=== PATIENT | male | born 1935 | race Caucasian/White ===

== ENCOUNTER 2021-11-12 12:57 | Inpatient (IN) | payer MEDICARE, OTHER ==
[~2021-11-12] VITALS: Ht 172.7 cm; Wt 95.0 kg
[2021-11-12] MEDS ORDERED: DILTIAZEM HCL 5 MG/ML 5 ML VIAL IVP ONE (13:45)
[2021-11-12] MEDS ORDERED: DIGOXIN 250 MCG/ML 2 ML AMP IVP ONE (13:45)
[2021-11-12] MEDS ORDERED: CALCIUM GLUCONATE 100 MG/ML 10 ML IVP ONE (13:45)
[2021-11-12 13:46] LABS: BASOPHILS % (AUTO) 0.1 % (0.0-2.0); EOSINOPHILS % (AUTO) 0 % (1.0-6.0); HEMATOCRIT 36.8 % (41-53); HEMOGLOBIN 12.3 g/dL (13.5-17.5); LYMPHOCYTES # (AUTO) 0.5 K/uL (1.0-4.8); LYMPHOCYTES % (AUTO) 4.4 % (22.0-44.0); MEAN CORPUSCULAR HEMOGLOBIN 32.1 pg (26.0-34.0); MEAN CORPUSCULAR HGB CONC 33.4 G/dL (31.0-37.0); MEAN CORPUSCULAR VOLUME 96 fL (80-100); MONOCYTES # (AUTO) 0.9 K/uL (0.1-1.0); MONOCYTES % (AUTO) 7.6 % (2.0-9.0); NEUTROPHILS # (AUTO) 10.5 K/uL (1.8-7.7); PLATELET COUNT (AUTO) 161 K/uL (150-450); RED BLOOD CELL COUNT(AUTO) 3.82 MIL/uL (4.50-5.90)
[2021-11-12 13:47] LABS: NEUTROPHILS % (AUTO) 87.9 % (40.0-70.0)
[2021-11-12 13:51] LABS: CALCIUM, TOTAL 8.7 mg/dL (8.8-10.5); CREATININE 3.95 mg/dL (0.60-1.30); POTASSIUM 3.3 mmol/L (3.5-5.1)
[2021-11-12 13:57] LABS: ALBUMIN 2.2 g/dL (3.4-5.0); BILIRUBIN,TOTAL 1.7 mg/dL (0.1-1.0)
[2021-11-12 14:07] LABS: INR 1.1 (0.9-1.1); PROTHROMBIN TIME 11.6 SEC (9.4-11.6)
[2021-11-12 14:22] LABS: COVID AG,FIA SOURCE NASOPHARYNGEAL
[2021-11-12] MEDS ORDERED: 0.9% SODIUM CHLORIDE 10 ML SYRINGE IVP PRN (14:30)
[2021-11-12] MEDS ORDERED: ONDANSETRON HCL 4 MG/2 ML VIAL IVP PRN ×2 (14:30)
[2021-11-12] MEDS ORDERED: ACETAMINOPHEN 325 MG TABLET PO PRN (14:30)
[2021-11-12] MEDS ORDERED: DEXTROSE 50%-WATER 25 GM/50 ML SYRINGE IVP PRN (14:45)
[2021-11-12 16:31] LABS: GLUCOSE,POINT OF CARE 247 MG/DL (70-110)
[2021-11-12 18:29] LABS: GLUCOSE, URINE (UA) NEGATIVE (NEGATIVE); KETONES,URINE NEGATIVE (NEGATIVE); NITRATE,URINE NEGATIVE (NEGATIVE); PROTEIN,URINE SEE CONFIRM (NEGATIVE)
[2021-11-12 18:44] LABS: APPEARANCE,URINE CLOUDY (CLEAR); BILIRUBIN,URINE PRELIM. POSITIVE (NEGATIVE)
[2021-11-12 18:45] LABS: LEUKOCYTE ESTERASE ,URINE SMALL (NEGATIVE); OCCULT BLOOD,URINE SMALL (NEGATIVE); SULFOSALICYLIC ACID,URINE 3+ (Negative)
[2021-11-12 18:46] LABS: BACTERIA,URINE Many /HPF (None Seen)
[2021-11-12 18:47] LABS: COARSE GRANULAR CASTS,URINE 0-2 /LPF (None Seen); FINE GRANULAR CASTS,URINE 0-2 /LPF (None Seen)
[2021-11-12 20:04] VITALS: BP 128/82
[2021-11-12] MEDS ORDERED: HEPARIN SODIUM,PORCINE 5,000 UNITS/ML VIAL SQ SCH (21:00)
[2021-11-12] MEDS: METOPROLOL TARTRATE 25 MG TABLET PO SCH (21:27)
[2021-11-12] MEDS: APIXABAN 2.5 MG TABLET PO SCH (21:27)
[2021-11-12] MEDS: DOCUSATE SODIUM 100 MG CAPSULE PO SCH (21:27)
[2021-11-12] MEDS: INSULIN LISPRO 100 UNITS/ML SQ PRN (21:29)
[2021-11-12 21:41] LABS: GLUCOMETER DEV NAME(LOC) 5S.2B; GLUCOSE,POINT OF CARE 349 MG/DL (70-110)
[2021-11-13] VITALS (7 sets, daily range): BP systolic 106–134; BP diastolic 54–83
[2021-11-13] MEDS: INSULIN LISPRO 100 UNITS/ML SQ PRN ×3 (06:11→20:33)
[2021-11-13 06:46] LABS: GLUCOMETER DEV NAME(LOC) 5S.1; GLUCOSE,POINT OF CARE 235 MG/DL (70-110)
[2021-11-13 07:16] LABS: BASOPHILS % (AUTO) 0.3 % (0.0-2.0); EOSINOPHILS % (AUTO) 0.3 % (1.0-6.0); HEMATOCRIT 36.4 % (41-53); HEMOGLOBIN 12.2 g/dL (13.5-17.5); LYMPHOCYTES # (AUTO) 0.7 K/uL (1.0-4.8); LYMPHOCYTES % (AUTO) 5.8 % (22.0-44.0); MEAN CORPUSCULAR HEMOGLOBIN 32.1 pg (26.0-34.0); MEAN CORPUSCULAR HGB CONC 33.5 G/dL (31.0-37.0); MEAN CORPUSCULAR VOLUME 96 fL (80-100); MONOCYTES # (AUTO) 1.1 K/uL (0.1-1.0); MONOCYTES % (AUTO) 9.1 % (2.0-9.0); NEUTROPHILS % (AUTO) 84.5 % (40.0-70.0); PLATELET COUNT (AUTO) 169 K/uL (150-450); RED BLOOD CELL COUNT(AUTO) 3.81 MIL/uL (4.50-5.90); RED CELL DISTRIBUTION WIDTH 14.4 % (11.5-14.5)
[2021-11-13 07:42] LABS: BILIRUBIN,TOTAL 1.5 mg/dL (0.1-1.0); CALCIUM, TOTAL 8.8 mg/dL (8.8-10.5); CREATININE 3.39 mg/dL (0.60-1.30); MAGNESIUM 2.1 mg/dL (1.80-2.40); PHOSPHORUS 3.5 mg/dL (2.5-4.9); TOTAL PROTEIN, SERUM 6.8 g/dL (6.4-8.2)
[2021-11-13 07:44] LABS: POTASSIUM 2.9 mmol/L (3.5-5.1)
[2021-11-13] MEDS: FAMOTIDINE 20 MG TABLET PO SCH (08:27)
[2021-11-13] MEDS: APIXABAN 2.5 MG TABLET PO SCH ×2 (08:27→20:28)
[2021-11-13] MEDS: DOCUSATE SODIUM 100 MG CAPSULE PO SCH ×2 (08:27→20:28)
[2021-11-13] MEDS: ASPIRIN 81 MG CHEWABLE TABLET PO SCH (08:28)
[2021-11-13] MEDS: METOPROLOL TARTRATE 25 MG TABLET PO SCH ×2 (08:28→20:28)
[2021-11-13] MEDS: POTASSIUM CHL 10 MEQ/WATER 50 ML IV SCH ×2 (08:28→09:33)
[2021-11-13] MEDS ORDERED: SODIUM CHLORIDE 0.9% 1,000 ML ONE (08:32)
[2021-11-13 12:12] LABS: CALCIUM, TOTAL 8.7 mg/dL (8.8-10.5); CREATININE 3.33 mg/dL (0.60-1.30); POTASSIUM 3.4 mmol/L (3.5-5.1)
[2021-11-13] MEDS ORDERED: GLUCAGON,HUMAN RECOMBINANT 1 MG VIAL IM PRN (12:30)
[2021-11-13] MEDS ORDERED: FOLI-130 PO (12:51)
[2021-11-13] MEDS ORDERED: LACT30L PO (12:52)
[2021-11-13] MEDS ORDERED: PANT-31 PO (12:52)
[2021-11-13] MEDS ORDERED: PENT400T37 PO (12:53)
[2021-11-13] MEDS ORDERED: RIFAX550 PO (12:53)
[2021-11-13] MEDS ORDERED: THIA100T80 PO (12:53)
[2021-11-13] MEDS ORDERED: SPIR-37 PO (12:53)
[2021-11-13] MEDS ORDERED: AUD NEB (12:54)
[2021-11-13] MEDS ORDERED: BENZ-70 PO (12:55)
[2021-11-13] MEDS ORDERED: IPRNEB IH (12:56)
[2021-11-13] MEDS: INSULIN GLARGINE,HUM.REC.ANLOG 100 UNITS/ML SQ SCH ×2 (13:42→20:33)
[2021-11-13] MEDS: CefTRIAXone 1 GM/DEXTROSE 50 ML IV SCH (16:44)
[2021-11-13] MEDS ORDERED: DENTURE ADHESIVE 68 GM CREAM DT PRN (18:00)
[2021-11-13 18:01] LABS: GLUCOMETER DEV NAME(LOC) 5N.1C; GLUCOSE,POINT OF CARE 396 MG/DL (70-110)
[2021-11-13] MEDS: ACETAMINOPHEN 325 MG TABLET PO PRN (20:29)
[2021-11-14 01:11] LABS: GLUCOMETER DEV NAME(LOC) 5N.3; GLUCOSE,POINT OF CARE 223 MG/DL (70-110)
[2021-11-14 06:17] VITALS: BP 129/80
[2021-11-14 07:30] VITALS: BP 142/86
[2021-11-14 07:30] LABS: BASOPHILS % (AUTO) 0.5 % (0.0-2.0); EOSINOPHILS % (AUTO) 0.2 % (1.0-6.0); HEMATOCRIT 35.3 % (41-53); HEMOGLOBIN 11.8 g/dL (13.5-17.5); LYMPHOCYTES # (AUTO) 0.8 K/uL (1.0-4.8); LYMPHOCYTES % (AUTO) 6.4 % (22.0-44.0); MEAN CORPUSCULAR HEMOGLOBIN 32.2 pg (26.0-34.0); MEAN CORPUSCULAR HGB CONC 33.4 G/dL (31.0-37.0); MEAN CORPUSCULAR VOLUME 96 fL (80-100); MONOCYTES # (AUTO) 1.4 K/uL (0.1-1.0); NEUTROPHILS # (AUTO) 10.4 K/uL (1.8-7.7); NEUTROPHILS % (AUTO) 81.9 % (40.0-70.0); PLATELET COUNT (AUTO) 191 K/uL (150-450); RED BLOOD CELL COUNT(AUTO) 3.66 MIL/uL (4.50-5.90); RED CELL DISTRIBUTION WIDTH 14.7 % (11.5-14.5)
[2021-11-14 08:06] LABS: ALBUMIN 1.9 g/dL (3.4-5.0); CALCIUM, TOTAL 8.8 mg/dL (8.8-10.5); CREATININE 2.87 mg/dL (0.60-1.30); POTASSIUM 3.3 mmol/L (3.5-5.1); TOTAL PROTEIN, SERUM 6.6 g/dL (6.4-8.2)
[2021-11-14] MEDS: ASPIRIN 81 MG CHEWABLE TABLET PO SCH (08:45)
[2021-11-14] MEDS: APIXABAN 2.5 MG TABLET PO SCH ×2 (08:46→20:20)
[2021-11-14] MEDS: DOCUSATE SODIUM 100 MG CAPSULE PO SCH ×2 (08:46→20:20)
[2021-11-14] MEDS: METOPROLOL TARTRATE 25 MG TABLET PO SCH ×2 (08:46→20:20)
[2021-11-14 08:47] LABS: GLUCOMETER DEV NAME(LOC) 5N.1C; GLUCOSE,POINT OF CARE 153 MG/DL (70-110)
[2021-11-14] MEDS: FAMOTIDINE 20 MG TABLET PO SCH (08:47)
[2021-11-14] MEDS: INSULIN GLARGINE,HUM.REC.ANLOG 100 UNITS/ML SQ SCH ×2 (08:50→20:26)
[2021-11-14] MEDS ORDERED: POTASSIUM CHLORIDE 10 MEQ ER TABLET PO ONE (09:30)
[2021-11-14 11:43] VITALS: BP 146/82
[2021-11-14] MEDS: INSULIN LISPRO 100 UNITS/ML SQ PRN ×3 (11:49→20:27)
[2021-11-14 12:45] LABS: CALCIUM, TOTAL 8.7 mg/dL (8.8-10.5); CREATININE 2.71 mg/dL (0.60-1.30); POTASSIUM 3.4 mmol/L (3.5-5.1)
[2021-11-14 12:51] LABS: GLUCOMETER DEV NAME(LOC) 5N.1C; GLUCOSE,POINT OF CARE 242 MG/DL (70-110)
[2021-11-14 14:35] VITALS: BP 138/81
[2021-11-14] MEDS: CefTRIAXone 1 GM/DEXTROSE 50 ML IV SCH (17:14)
[2021-11-14] MEDS: ACETAMINOPHEN 325 MG TABLET PO PRN (20:20)
[2021-11-14 20:30] VITALS: BP 136/78
[2021-11-14 22:31] LABS: GLUCOMETER DEV NAME(LOC) 5N.1C; GLUCOSE,POINT OF CARE 193 MG/DL (70-110)
[2021-11-15 00:45] VITALS: BP 130/74
[2021-11-15 04:11] LABS: GLUCOMETER DEV NAME(LOC) 5N.3; GLUCOSE,POINT OF CARE 182 MG/DL (70-110)
[2021-11-15 05:30] VITALS: BP 127/75
[2021-11-15] MEDS: INSULIN LISPRO 100 UNITS/ML SQ PRN ×4 (06:57→20:56)
[2021-11-15 07:26] LABS: GLUCOMETER DEV NAME(LOC) 5S.1; GLUCOSE,POINT OF CARE 172 MG/DL (70-110)
[2021-11-15] MEDS: METOPROLOL TARTRATE 25 MG TABLET PO SCH ×2 (07:56→20:49)
[2021-11-15] MEDS: FAMOTIDINE 20 MG TABLET PO SCH (07:56)
[2021-11-15] MEDS: APIXABAN 2.5 MG TABLET PO SCH ×2 (07:56→20:49)
[2021-11-15] MEDS: ASPIRIN 81 MG CHEWABLE TABLET PO SCH (07:57)
[2021-11-15] MEDS: INSULIN GLARGINE,HUM.REC.ANLOG 100 UNITS/ML SQ SCH ×2 (07:59→20:55)
[2021-11-15 08:01] VITALS: BP_SYST 107; BP_SYST 130; BP_DIAS 86; BP_DIAS 93
[2021-11-15 08:21] LABS: BASOPHILS % (AUTO) 0.1 % (0.0-2.0); EOSINOPHILS % (AUTO) 0.2 % (1.0-6.0); HEMATOCRIT 36.4 % (41-53); HEMOGLOBIN 12.3 g/dL (13.5-17.5); LYMPHOCYTES # (AUTO) 0.6 K/uL (1.0-4.8); LYMPHOCYTES % (AUTO) 4.1 % (22.0-44.0); MEAN CORPUSCULAR HEMOGLOBIN 32.3 pg (26.0-34.0); MEAN CORPUSCULAR HGB CONC 33.8 G/dL (31.0-37.0); MEAN CORPUSCULAR VOLUME 96 fL (80-100); MONOCYTES # (AUTO) 1.5 K/uL (0.1-1.0); MONOCYTES % (AUTO) 9.9 % (2.0-9.0); NEUTROPHILS # (AUTO) 12.7 K/uL (1.8-7.7); PLATELET COUNT (AUTO) 222 K/uL (150-450); RED BLOOD CELL COUNT(AUTO) 3.81 MIL/uL (4.50-5.90); RED CELL DISTRIBUTION WIDTH 14.5 % (11.5-14.5)
[2021-11-15 08:24] LABS: CALCIUM, TOTAL 8.6 mg/dL (8.8-10.5); CREATININE 2.52 mg/dL (0.60-1.30); NEUTROPHILS % (AUTO) 85.7 % (40.0-70.0); POTASSIUM 3.3 mmol/L (3.5-5.1)
[2021-11-15] MEDS: DOCUSATE SODIUM 100 MG CAPSULE PO SCH ×2 (09:00→20:50)
[2021-11-15 11:54] VITALS: BP 115/68
[2021-11-15 12:21] LABS: GLUCOMETER DEV NAME(LOC) 5N.3; GLUCOSE,POINT OF CARE 157 MG/DL (70-110)
[2021-11-15 15:40] VITALS: BP 136/82
[2021-11-15] MEDS: CefTRIAXone 1 GM/DEXTROSE 50 ML IV SCH (15:51)
[2021-11-15 19:15] VITALS: BP 138/74
[2021-11-15] MEDS: ACETAMINOPHEN 325 MG TABLET PO PRN (20:50)
[2021-11-15] MEDS: CITRIC ACID/SODIUM CITRATE 30 ML SOLUTION UDCUP PO SCH (20:50)
[2021-11-15 21:26] LABS: GLUCOMETER DEV NAME(LOC) 5N.3; GLUCOSE,POINT OF CARE 153 MG/DL (70-110)
[2021-11-16] VITALS (7 sets, daily range): BP systolic 109–138; BP diastolic 64–81
[2021-11-16 06:16] LABS: GLUCOMETER DEV NAME(LOC) 5N.1C; GLUCOSE,POINT OF CARE 124 MG/DL (70-110)
[2021-11-16 06:17] LABS: BASOPHILS % (AUTO) 0.2 % (0.0-2.0); EOSINOPHILS % (AUTO) 0.5 % (1.0-6.0); HEMOGLOBIN 12.5 g/dL (13.5-17.5); LYMPHOCYTES # (AUTO) 0.5 K/uL (1.0-4.8); LYMPHOCYTES % (AUTO) 4.8 % (22.0-44.0); MEAN CORPUSCULAR HEMOGLOBIN 33.1 pg (26.0-34.0); MEAN CORPUSCULAR HGB CONC 34.7 G/dL (31.0-37.0); MEAN CORPUSCULAR VOLUME 95 fL (80-100); MONOCYTES % (AUTO) 10.2 % (2.0-9.0); NEUTROPHILS # (AUTO) 8.5 K/uL (1.8-7.7); NEUTROPHILS % (AUTO) 84.3 % (40.0-70.0); PLATELET COUNT (AUTO) 217 K/uL (150-450); RED BLOOD CELL COUNT(AUTO) 3.78 MIL/uL (4.50-5.90); RED CELL DISTRIBUTION WIDTH 14.6 % (11.5-14.5)
[2021-11-16] MEDS: INSULIN LISPRO 100 UNITS/ML SQ PRN ×3 (06:40→21:22)
[2021-11-16 07:18] LABS: ALBUMIN 1.7 g/dL (3.4-5.0); BILIRUBIN,TOTAL 0.7 mg/dL (0.1-1.0); CALCIUM, TOTAL 8.5 mg/dL (8.8-10.5); CREATININE 2.56 mg/dL (0.60-1.30); FREE T4 (FREE THYROXINE) 1.13 ng/dL (0.76-1.46); MAGNESIUM 1.9 mg/dL (1.80-2.40); PHOSPHORUS 3.6 mg/dL (2.5-4.9); POTASSIUM 3.4 mmol/L (3.5-5.1); THYROID STIMULATING HORMONE 3.65 uIU/mL (0.36-3.74); TOTAL PROTEIN, SERUM 6.7 g/dL (6.4-8.2)
[2021-11-16 07:51] LABS: GLUCOMETER DEV NAME(LOC) 5N.3; GLUCOSE,POINT OF CARE 157 MG/DL (70-110)
[2021-11-16] MEDS: METOPROLOL TARTRATE 25 MG TABLET PO SCH ×3 (08:27→21:23)
[2021-11-16] MEDS: ASPIRIN 81 MG CHEWABLE TABLET PO SCH (08:27)
[2021-11-16] MEDS: FAMOTIDINE 20 MG TABLET PO SCH (08:27)
[2021-11-16] MEDS: DOCUSATE SODIUM 100 MG CAPSULE PO SCH ×2 (08:27→21:23)
[2021-11-16] MEDS: APIXABAN 2.5 MG TABLET PO SCH ×3 (08:27→21:23)
[2021-11-16] MEDS: CITRIC ACID/SODIUM CITRATE 30 ML SOLUTION UDCUP PO SCH ×3 (08:28→21:22)
[2021-11-16] MEDS: INSULIN GLARGINE,HUM.REC.ANLOG 100 UNITS/ML SQ SCH ×2 (09:03→21:22)
[2021-11-16 11:51] LABS: GLUCOMETER DEV NAME(LOC) 5N.3; GLUCOSE,POINT OF CARE 199 MG/DL (70-110)
[2021-11-16] MEDS: CefTRIAXone 1 GM/DEXTROSE 50 ML IV SCH (15:10)
[2021-11-16 17:06] LABS: GLUCOMETER DEV NAME(LOC) 5N.3; GLUCOSE,POINT OF CARE 168 MG/DL (70-110)
[2021-11-17 05:57] VITALS: BP_SYST 110; BP_SYST 158; BP_DIAS 68; BP_DIAS 96
[2021-11-17] MEDS: INSULIN LISPRO 100 UNITS/ML SQ PRN ×4 (06:34→20:39)
[2021-11-17 07:06] LABS: GLUCOMETER DEV NAME(LOC) 5N.3; GLUCOSE,POINT OF CARE 221 MG/DL (70-110)
[2021-11-17 07:06] LABS: GLUCOMETER DEV NAME(LOC) 5N.3; GLUCOSE,POINT OF CARE 166 MG/DL (70-110)
[2021-11-17 08:10] VITALS: BP 115/72
[2021-11-17] MEDS: CITRIC ACID/SODIUM CITRATE 30 ML SOLUTION UDCUP PO SCH ×3 (08:34→20:38)
[2021-11-17] MEDS: DOCUSATE SODIUM 100 MG CAPSULE PO SCH ×2 (08:35→20:33)
[2021-11-17] MEDS: APIXABAN 2.5 MG TABLET PO SCH ×2 (08:36→20:38)
[2021-11-17] MEDS: FAMOTIDINE 20 MG TABLET PO SCH (08:36)
[2021-11-17] MEDS: ASPIRIN 81 MG CHEWABLE TABLET PO SCH (08:37)
[2021-11-17] MEDS: INSULIN GLARGINE,HUM.REC.ANLOG 100 UNITS/ML SQ SCH ×3 (08:39→20:38)
[2021-11-17] MEDS: METOPROLOL TARTRATE 25 MG TABLET PO SCH (08:41)
[2021-11-17 12:10] VITALS: BP 131/80
[2021-11-17 13:01] LABS: GLUCOMETER DEV NAME(LOC) 5N.3; GLUCOSE,POINT OF CARE 191 MG/DL (70-110)
[2021-11-17] MEDS: CefTRIAXone 1 GM/DEXTROSE 50 ML IV SCH (15:33)
[2021-11-17 16:00] VITALS: BP 107/51
[2021-11-17 18:56] LABS: GLUCOMETER DEV NAME(LOC) 5S.1B; GLUCOSE,POINT OF CARE 185 MG/DL (70-110)
[2021-11-17 20:07] VITALS: BP 106/70
[2021-11-17] MEDS: METOPROLOL TARTRATE 50 MG TABLET PO SCH ×2 (20:34→20:55)
[2021-11-18] VITALS (7 sets, daily range): BP systolic 107–145; BP diastolic 59–86
[2021-11-18] MEDS: INSULIN LISPRO 100 UNITS/ML SQ PRN ×2 (05:58→18:08)
[2021-11-18 06:47] LABS: GLUCOMETER DEV NAME(LOC) 5N.1C; GLUCOSE,POINT OF CARE 188 MG/DL (70-110)
[2021-11-18 07:17] LABS: GLUCOMETER DEV NAME(LOC) 5N.3; GLUCOSE,POINT OF CARE 166 MG/DL (70-110)
[2021-11-18 09:08] LABS: BASOPHILS % (AUTO) 0.3 % (0.0-2.0); EOSINOPHILS % (AUTO) 1.4 % (1.0-6.0); HEMATOCRIT 35.3 % (41-53); LYMPHOCYTES # (AUTO) 0.6 K/uL (1.0-4.8); LYMPHOCYTES % (AUTO) 6.8 % (22.0-44.0); MEAN CORPUSCULAR HEMOGLOBIN 32.3 pg (26.0-34.0); MEAN CORPUSCULAR VOLUME 95 fL (80-100); MONOCYTES % (AUTO) 10.7 % (2.0-9.0); NEUTROPHILS # (AUTO) 7.3 K/uL (1.8-7.7); NEUTROPHILS % (AUTO) 80.8 % (40.0-70.0); PLATELET COUNT (AUTO) 298 K/uL (150-450); RED BLOOD CELL COUNT(AUTO) 3.71 MIL/uL (4.50-5.90); RED CELL DISTRIBUTION WIDTH 14.6 % (11.5-14.5)
[2021-11-18 09:22] LABS: ALBUMIN 1.9 g/dL (3.4-5.0); BILIRUBIN,TOTAL 0.4 mg/dL (0.1-1.0); CALCIUM, TOTAL 8.4 mg/dL (8.8-10.5); CREATININE 2.67 mg/dL (0.60-1.30); POTASSIUM 3.4 mmol/L (3.5-5.1); TOTAL PROTEIN, SERUM 6.9 g/dL (6.4-8.2)
[2021-11-18] MEDS: METOPROLOL TARTRATE 50 MG TABLET PO SCH ×2 (10:41→20:43)
[2021-11-18] MEDS: FAMOTIDINE 20 MG TABLET PO SCH (10:41)
[2021-11-18] MEDS: DOCUSATE SODIUM 100 MG CAPSULE PO SCH ×3 (10:41→20:44)
[2021-11-18] MEDS: APIXABAN 2.5 MG TABLET PO SCH ×2 (10:41→20:43)
[2021-11-18] MEDS: CITRIC ACID/SODIUM CITRATE 30 ML SOLUTION UDCUP PO SCH ×2 (10:42→20:43)
[2021-11-18] MEDS: ASPIRIN 81 MG CHEWABLE TABLET PO SCH (10:42)
[2021-11-18] MEDS: INSULIN GLARGINE,HUM.REC.ANLOG 100 UNITS/ML SQ SCH ×2 (10:44→20:44)
[2021-11-18] MEDS: CefTRIAXone 1 GM/DEXTROSE 50 ML IV SCH (16:24)
[2021-11-18 18:11] LABS: GLUCOMETER DEV NAME(LOC) 5N.1C; GLUCOSE,POINT OF CARE 230 MG/DL (70-110)
[2021-11-18 20:11] LABS: GLUCOMETER DEV NAME(LOC) 5N.3; GLUCOSE,POINT OF CARE 188 MG/DL (70-110)
[2021-11-18 20:21] LABS: GLUCOMETER DEV NAME(LOC) 5N.3; GLUCOSE,POINT OF CARE 168 MG/DL (70-110)
[2021-11-19 03:45] VITALS: BP 117/70
[2021-11-19 06:41] LABS: GLUCOMETER DEV NAME(LOC) 5N.1C; GLUCOSE,POINT OF CARE 179 MG/DL (70-110)
[2021-11-19] MEDS: INSULIN LISPRO 100 UNITS/ML SQ PRN (06:49)
[2021-11-19 07:19] LABS: BASOPHILS % (AUTO) 0.4 % (0.0-2.0); EOSINOPHILS % (AUTO) 1.8 % (1.0-6.0); HEMATOCRIT 33.3 % (41-53); HEMOGLOBIN 11.7 g/dL (13.5-17.5); LYMPHOCYTES # (AUTO) 0.9 K/uL (1.0-4.8); LYMPHOCYTES % (AUTO) 12.8 % (22.0-44.0); MEAN CORPUSCULAR HEMOGLOBIN 33.3 pg (26.0-34.0); MEAN CORPUSCULAR VOLUME 95 fL (80-100); MONOCYTES # (AUTO) 0.8 K/uL (0.1-1.0); NEUTROPHILS # (AUTO) 5.1 K/uL (1.8-7.7); PLATELET COUNT (AUTO) 310 K/uL (150-450); RED BLOOD CELL COUNT(AUTO) 3.51 MIL/uL (4.50-5.90); RED CELL DISTRIBUTION WIDTH 14.4 % (11.5-14.5)
[2021-11-19 07:43] LABS: CALCIUM, TOTAL 8.3 mg/dL (8.8-10.5); CREATININE 2.34 mg/dL (0.60-1.30); POTASSIUM 3.4 mmol/L (3.5-5.1)
[2021-11-19 07:44] VITALS: BP 138/86
[2021-11-19] MEDS: ASPIRIN 81 MG CHEWABLE TABLET PO SCH (09:00)
[2021-11-19] MEDS: CITRIC ACID/SODIUM CITRATE 30 ML SOLUTION UDCUP PO SCH (09:00)
[2021-11-19] MEDS: METOPROLOL TARTRATE 50 MG TABLET PO SCH (09:00)
[2021-11-19] MEDS: FAMOTIDINE 20 MG TABLET PO SCH (09:00)
[2021-11-19] MEDS: APIXABAN 2.5 MG TABLET PO SCH (09:00)
[2021-11-19] MEDS: DOCUSATE SODIUM 100 MG CAPSULE PO SCH (09:00)
[2021-11-19] MEDS: INSULIN GLARGINE,HUM.REC.ANLOG 100 UNITS/ML SQ SCH (09:00)
[2021-11-19 11:16] VITALS: BP 129/83
[2021-11-19] MEDS: CefTRIAXone 1 GM/DEXTROSE 50 ML IV SCH (15:45)
[2021-11-19] MEDS ORDERED: ASPI81 PO (15:51)
[2021-11-19] MEDS ORDERED: METO50 PO (15:51)
[2021-11-19] MEDS ORDERED: INSLAN SQ (15:51)
[2021-11-19] MEDS ORDERED: BICIT30L PO (15:51)
[2021-11-19] MEDS ORDERED: APIX2.5T PO (15:51)
== END 2021-11-19 17:03 | disposition home or self-care (01) | DRG 308 ==
LOC: EMS 13:13 → 5S 18:02
PROVIDERS: ADMIT Internal Medicine; ATTEND Internal Medicine
DX: I48.91 Unspecified atrial fibrillation (principal); N17.0 Acute kidney failure with tubular necrosis; E87.1 Hypo-osmolality and hyponatremia; N39.0 Urinary tract infection, site not specified; E87.6 Hypokalemia; I12.9 Hypertensive chronic kidney disease with stage 1 through stage 4 chronic kidney disease, or unspecified chronic kidney disease; E78.5 Hyperlipidemia, unspecified; E11.22 Type 2 diabetes mellitus with diabetic chronic kidney disease; N40.0 Benign prostatic hyperplasia without lower urinary tract symptoms; E11.65 Type 2 diabetes mellitus with hyperglycemia; E66.9 Obesity, unspecified; F03.90 Unspecified dementia, unspecified severity, without behavioral disturbance, psychotic disturbance, mood disturbance, and anxiety; Z20.822 Contact with and (suspected) exposure to COVID-19; N18.9 Chronic kidney disease, unspecified; Z68.31 Body mass index [BMI] 31.0-31.9, adult; Z79.01 Long term (current) use of anticoagulants; Z79.899 Other long term (current) drug therapy; Z83.3 Family history of diabetes mellitus
CPT/HCPCS: 71045; 76770; 80048; 80053; 81001; 81002; 82140; 82962; 83036; 83690; 83735; 83880; 84100; 84145; 84439; 84443; 84484; 85025; 85610; 85730; 87040; 87086; 93005; 93306; 97116; 97162; 97166; 97530; 99291; G0378; J0610; J0696; J1160; J1815; J2405; J3480; J3490; J7030; 36415-L1; 36415-TC